=== PATIENT | male | born 1970 ===

== ENCOUNTER 2020-10-17 18:29 | Outpatient (REF) | payer OTHER, SELFPAY ==
[2020-10-17 20:36] LABS: ALT 38 U/L (16-63); CREATININE 0.97 mg/dL (0.70-1.30); Calculated LDL 51 mg/dL (<100); Cholesterol 110 mg/dL (<200); HDL Cholesterol 51 mg/dL (40-60); Triglyceride 40 mg/dL (<150)
== END 2020-10-17 18:49 ==
LOC: NCHCN 18:29
PROVIDERS: PCP Internal Medicine; Visit Provider Internal Medicine
DX: Z00.00 Encounter for general adult medical examination without abnormal findings (principal)
CPT/HCPCS: 80061; 82565; 84460

== ENCOUNTER 2022-09-20 13:49 | Outpatient (REF) | payer OTHER, SELFPAY ==
[2022-09-20 19:19] LABS: Anion Gap 9.5 mmol/L (3-11); BUN 10 mg/dL (7-18); CO2 26.5 mmol/L (21.0-32.0); Calcium 9.4 mg/dL (8.5-10.1); Calculated LDL 50 mg/dL (<100); Chloride 105 mmol/L (98-107); Cholesterol 102 mg/dL (<200); Glucose 119 mg/dL (74-106); HDL Cholesterol 47 mg/dL (40-60); Potassium 3.8 mmol/L (3.5-5.1); Sodium 141 mmol/L (136-145); Triglyceride 29 mg/dL (<150)
[2022-09-21 18:54] LABS: PSA, Screening 1.7 ng/mL (<=3.5)
== END 2022-09-20 13:50 | disposition home or self-care (01) ==
LOC: NCHCN 13:49
PROVIDERS: PCP Internal Medicine; Visit Provider Internal Medicine
DX: I10 Essential (primary) hypertension (principal)
CPT/HCPCS: 80048; 80061; 84153

== ENCOUNTER 2023-11-14 20:28 | Outpatient (REF) | payer OTHER, SELFPAY ==
[2023-11-14 19:47] LABS: ALT 41 U/L (16-63); Anion Gap 8.7 mmol/L (3-11); BUN 15 mg/dL (7-18); CO2 27.3 mmol/L (21.0-32.0); CREATININE 1.3 mg/dL (0.70-1.30); Calcium 9.7 mg/dL (8.5-10.1); Chloride 103 mmol/L (98-107); Creatine Kinase 317 U/L (39-308); Estimated GFR 65.28 (mL/min/1.73m2); Glucose 94 mg/dL (74-106); Potassium 3.9 mmol/L (3.5-5.1); Sodium 139 mmol/L (136-145)
[2023-11-14 20:03] LABS: Calculated LDL 53 mg/dL (<100); Cholesterol 109 mg/dL (<200); HDL Cholesterol 48 mg/dL (40-60); Triglyceride 42 mg/dL (<150)
[2023-11-15 21:02] LABS: PSA, Diagnostic 1.7 ng/mL (<=3.5)
== END 2023-11-14 20:29 | disposition home or self-care (01) ==
LOC: NCHCN 20:28
PROVIDERS: PCP Internal Medicine; Visit Provider Internal Medicine
DX: Z00.00 Encounter for general adult medical examination without abnormal findings (principal); I10 Essential (primary) hypertension; E78.5 Hyperlipidemia, unspecified; Z12.5 Encounter for screening for malignant neoplasm of prostate
CPT/HCPCS: 80048; 80061; 82550; 84153; 84460

== ENCOUNTER 2025-03-29 18:29 | Outpatient (REF) | payer OTHER, SELFPAY ==
[2025-03-29 19:20] LABS: ALT 47 U/L (16-63); Anion Gap 8.3 mmol/L (3-11); BUN 14 mg/dL (7-18); CO2 28.7 mmol/L (21.0-32.0); Calcium 9.4 mg/dL (8.5-10.1); Calculated LDL 48 mg/dL (<100); Chloride 105 mmol/L (98-107); Cholesterol 103 mg/dL (<200); Estimated GFR 88.88 (mL/min/1.73m2); Glucose 92 mg/dL (74-106); HDL Cholesterol 46 mg/dL (>or=40); Sodium 142 mmol/L (136-145); Triglyceride 45 mg/dL (<150)
[2025-03-29 19:35] LABS: Creatine Kinase 223 U/L (39-308)
[2025-03-30 18:30] LABS: PSA, Screening 1.9 ng/mL (<=3.5)
== END 2025-03-29 18:30 | disposition home or self-care (01) ==
LOC: NCHCN 18:29
PROVIDERS: PCP Internal Medicine; Visit Provider Internal Medicine
DX: E78.5 Hyperlipidemia, unspecified (principal); Z12.5 Encounter for screening for malignant neoplasm of prostate
CPT/HCPCS: 80048; 80061; 82550; 84153; 84460